=== PATIENT | female | born 2000 | race Caucasian/White ===

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

== ENCOUNTER 2020-04-11 11:27 | Outpatient (CLI) | payer BC, SELFPAY ==
--- NOTE | ~2020-04-11 | XR_ITS ---
EXAMINATION: XR foot RT standing 2V, XR foot RT min 3V EXAM DATE: 04/11/2020 11:59 INDICATION: M79.671 - Pain in right foot . TECHNIQUE: Right foot dorsoplantar, lateral and oblique projections obtained and reviewed. Addition al standing frontal and lateral projections right foot. There are no prior studies for comparison. FINDINGS: Right metatarsal bones unremarkable. There are no bony erosions identified. There is pes planus. There are no acute fractures or dislocations identified. There is no subcutaneous gas. The soft tissue is unremarkable. There are no radiopaque foreign bodies. IMPRESSION: Right-sided pes planus. Reviewed, dictated and finalized at location B. ODITY SPECIALIST IMPRESSION: Right-sided pes planus. IMPRESSION: Right-sided pes planus.
--- NOTE | ~2020-04-11 | XR_ITS ---
EXAMINATION: XR foot LT standing 2V, XR foot LT min 3V EXAM DATE: 04/11/2020 11:59 INDICATION: M79.671 - Pain in right foot, left foot pain, no injury. TECHNIQUE: Left foot dorsoplantar, lateral and oblique projections obtained and reviewed. Additional left foot frontal and lateral projections obtained standing. There are no prior studies for comparis on. FINDINGS: Left metatarsal bones unremarkable. There is pes planus. There are no acute fractures or dislocations identified. There is no subcutaneous gas. The soft tissue is unremarkable. There ar e no radiopaque foreign bodies. There are no bony erosions identified. IMPRESSION: Left-sided pes planus. Reviewed, dictated and finalized at location B. URE BUILDER IMPRESSION: Left-sided pes planus. IMPRESSION: Left-sided pes planus.
== END 2020-04-11 11:28 | disposition home or self-care (01) ==
PROVIDERS: PCP Family Medicine; Visit Provider Nurse Practitioner Family
DX: M21.072 Valgus deformity, not elsewhere classified, left ankle (principal); M21.071 Valgus deformity, not elsewhere classified, right ankle
CPT/HCPCS: 73620; 73630

== ENCOUNTER 2021-01-13 03:06 | Day surgery (SDC) | payer BC, SELFPAY ==
[2021-01-09 09:28] VITALS: BMI 32.9
--- NOTE | 2021-01-12 14:05 | WPDANESEPPF ---
Anes - Initial Pre Proc Eval Procedure: Operation Date: 01/13/21 09:30 Proposed Procedures p Talotarsal Stabilization Left Foot, Partha Anterior Calcaneal Osteotomy Left Foot, Cotton Osteotomy Left Foot Medial Cuneiform - Barry Medellin JR, MD Date/Time: 01/12/21 14:05 Surgeon: Barry Medellin JR, MD Pre Op Diagnosis: talotarsal instability left foot Patient Data Age: 20 Gender: F Height: 1.57 m Weight: 81.65 kg Allergies Allergy/AdvReac Type Severity Reaction Status Date / Time acetaminophen [From Percocet] AdvReac Intermediate Numbness Verified 01/09/21 09:24 oxycodone [From Percocet] AdvReac Intermediate Numbness Verified 01/09/21 09:24 Penicillins AdvReac Intermediate body went Verified 01/09/21 09:24 numb. Home Medications Medication Instructions Recorded Confirmed Type drospirenone (contraceptive) 4 mg 4 mg PO HS 04/11/20 01/09/21 History (28) tablet sertraline 100 mg tablet 100 mg PO HS 04/11/20 01/09/21 History trazodone 50 mg tablet 50 mg PO HS 04/11/20 01/09/21 History buspirone 5 mg PO BID 01/09/21 01/09/21 History cetirizine [Zyrtec] 10 mg PO HS 01/09/21 01/09/21 History ferrous sulfate [Iron (ferrous 325 mg PO HS 01/09/21 01/09/21 History sulfate)] folic acid 0.8 mg PO HS 01/09/21 01/09/21 History omeprazole 40 mg PO HS 01/09/21 01/09/21 History potassium 99 mg PO HS 01/09/21 01/09/21 History topiramate 50 mg PO HS 01/09/21 01/09/21 History Patient hx anesthesia problems: none Family hx anesthesia problems: none Results Review: All pre-operative results and documents have been reviewed as part of the pre-operative evaluation. [facility] Past Medical History Medical History (Updated 01/12/21 @ 14:05 by Nael Gold MD) Acute onset aura migraine Anxiety BMI 30.0-30.9,adult BMI 31.0-31.9,adult Depression Rib pain Rib pain on left side Family History Family History Father Hypertension Other Chronic migraine Amnesia Epilepsy Sibling Depression Anxiety Mother Epilepsy Memory deficit Sibling Asthma Social History Social History Smoking status: Current every day smoker Tobacco type: e-cigarettes/vaping Second hand tobacco smoke exposure: No Alcohol intake: never Alcohol use details: occaisionally Substance use: never Substance use type: does not use Living arrangements: with family Additional living arrangements comments: Lives with fatherl 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 Gender identity (if verbalized by the patient): Female Spiritual care concerns: No Anes - Eval Final PreProcedure Day of Procedure 01/12/21 14:05 Patient weight: obese Heart: regular rate and rhythm Lungs: clear to auscultation and normal air movement Airway: Mallampati scale class II Neurological: alert and oriented Last oral intake: >/= 8 hours ASA classification: II Emergent: no Anesthetic plan: proceed Anesthesia type and monitoring: general LMA Results Review: All pre-operative results and documents have been reviewed as part of the pre-operative evaluation. Informed Consent: The patient's anesthetic plan and its attendant risks and benefits were discussed with the patient/family/POA. Questions were solicited and answers provided to the satisfaction of the patient/family/POA.
--- NOTE | 2021-01-12 14:06 | WPDANESPNB ---
Anes - Peripheral Nerve Block Date/Time: 01/12/21 14:06 I have discussed with the patient/family/POA the placement of a peripheral nerve block for post-operative pain management, including associated risks, benefits, complications, and side effects. Alternative methods of post-operative analgesia were detailed. Questions were solicited and answers provided to the satisfaction of the patient/family/POA. Time-Out: A pre-procedural Time-Out was completed immediately before starting the procedure and confirmed: Patient Identification, Site, Procedure, Patient Position and the Availability of Requisite Equipment. Clinical Indications: Acute post-operative pain management requested by the operative surgeon. Nerve Block Insertion Note Anes-nerve block: posterior fossa sciatic (20cc) left and adductor canal (10cc) left Patient position: supine Skin prep: chlorhexidine Needle: 22 gauge, stimulating, insulated echogenic needle. Needle length: 80 mm Technique: ultrasound (in plane) Injectate: bupivacaine 0.5% with epi 5 mcg/ml (20cc) Observations: tolerated well Complications: none Procedure start time:: 905 Procedure end time:: 0
--- NOTE | ~2021-01-13 | XR_ITS ---
EXAMINATION: XR surgery orthopedic DATE: 01/13/2021 11:22 INDICATION: Left foot talotarsal instability. TECHNIQUE: 2 intraoperative fluoroscopic views of left foot were obtained. I was not present. Fluoros copy exposure time was 35 seconds. COMPARISON: Left foot radiographs 04/11/2020 FINDINGS: There is a screw in sinus tarsi. There is an osteotomy of calcaneus with implant and plate and screws. There is an osteotomy of medial cuneiform with implant. IMPRESSION: 1. Surgical changes of calcaneus, sinus tarsi, and medial cuneiform. Reviewed, dictated and finalized at location A.
--- NOTE | 2021-01-13 07:09 | WPDHPUPDATE1 ---
History and Physical Update Update Date/Time: 01/13/21 07:09 History and Physical has been reviewed, including an updated exam of the patient. There are NO changes in the patient's condition. Risks, benefits, and alternatives have been discussed and questions answered. Patient agrees to proceed with procedure.
[2021-01-13 07:50] VITALS: BP 137/69; PULSE 72; RESP 16; TEMP 36.9; O2SAT 100; BMI 33.3
[2021-01-13] MEDS: LACTATED RINGERS 1,000 ML 30 ML IV CONT ×2 (08:15→11:37)
[2021-01-13] MEDS: ceFAZolin 2 GM/D5W 50 ML 2 GM/50 ML BAG IVPB (09:19)
[2021-01-13 11:42] VITALS: BP 135/68; PULSE 110; RESP 18; TEMP 37.2; O2SAT 100
--- NOTE | 2021-01-13 11:43 | P.OPB_ITS ---
Procedure Note - Brief Procedure Note - Brief Date of procedure: 01/13/21 Pre-op diagnosis: talotarsal instability left foot 1. Pes plano valgus deformity left foot 2. Talotarsal instability let foot Procedure performed: 1. Chavis anterior calcaneal osteotomy left foot 2. Mick medial cuneiform osteotomy left foot 3. Talotarsal stabilization left foot Implants: 1. 8mm Chavis [employer] biofoam wedge with a Ortholoc two hole plate 2. 5.5mm Mick [employer] biofoam wedge 3. Size 5 Hyprocure subtalar implant Anesthesia: GLMA and regional Surgeon: Barry Medellin JR, MD Estimated blood loss (mL): 5 Drains: No Packing: No Pathology: none sent Complications: No immediate complications Condition: stable Disposition: same day
[2021-01-13 11:57] VITALS: BP 125/61; PULSE 102; RESP 17; O2SAT 100
--- NOTE | 2021-01-13 11:59 | SUR.PHASEI ---
1150 - pillow under left lower leg for elevation. Ice pack behind left knee.
--- NOTE | 2021-01-13 12:08 | SUR.PHASEI ---
1208 - pt denies having any pain when asked.
[2021-01-13 12:16] VITALS: BP 108/65; PULSE 93; RESP 16
[2021-01-13 12:45] VITALS: BP 108/65; PULSE 93; RESP 16
--- NOTE | 2021-01-13 16:58 | W.PM.PROC2 ---
Procedure Note - Detailed Date of Procedure 01/13/21 Pre-op Diagnosis 1. Pes plano valgus deformity left foot 2.Talotarsal instability left foot Post-op Diagnosis other Procedure Performed 1. Chavis anterior calcaneal osteotomy left foot 2. Cotton Medial cuneiform osteotomy left foot 3. Talotarsal stabilization left foot Surgeon Barry Medellin JR, DPM Anesthesia general and regional (Popliteal fossa block) Description of Procedure PROCEDURE IN DETAIL: Under mild sedation, the patient was brought into the operating room and placed on the operating table in the supine position. A pneumatic thigh tourniquet was placed about the patient's thigh. Following general anesthesia and a previous popliteal fossa block, the foot and ankle was then scrubbed, prepped, and draped in the usual aseptic manner. An Esmarch bandage was then used to exsanguinate the patient's foot and ankle and the pneumatic thigh tourniquet was then inflated to 300 mmHg. Attention was directed to the lateral aspect of the hindfoot. An incision was made starting just distal to the lateral malleolus and extending towards the base of the calcaneal cuboid joint. The extensor digitorum brevis muscle was detached partially from its origin to expose the calcaneal cuboid joint and distal lateral aspect of the anterior calcaneus. The peroneal tendons were carefully retracted inferiorly. The periosteal tissue was dissected approximately 1.5cm proximal to the calcaneal cuboid joint. At this point a sagittal saw blade was used to make an osteotomy parallel with the calcaneal joint however 1.5cm proximal to the joint, the medial cortical hinge was preserved. Two Tyesha pins were placed proximal and distal to the osteotomy site and the osteotomy was opened until the talar head was fully covered by the navicular this also helped slightly plantarflex the first ray. An 8mm Biofoam wedge from [employer] was tamped into the osteotomy and fixated with a [employer] Ortholoc 2 hole plate. The distractor was removed and transverse plane deformity of the patients flat foot well reduced. Attention was directed to the dorsal central aspect of the medial cuneiform which was identified with fluoroscopy. A 3cm incision was made proximal and distal but medial to the extensor hallucis longus tenon. The periosteoum was dissected medial and lateral exposing the dorsal central medial cuneiform. Again a sagittal saw blade was used to make a perpendicular osteotomy 1.5cm proximal to the 1st metatarsal cuneiform joint. The plantar cortical hinge was preserved. Two Tyesha pins were placed proximal and distal to the osteotomy site and the osteotomy was opened until the 1st ray was plantarflexed and forefoot reduced to neutral. A 5.5 mm Biofoam wedge from [employer] was tamped tightly into the osteotomy. The distractor was removed and sagittal plane deformity of the patients flat foot well reduced. Next the dorsal medial periosteal and capsular tissues were reapproximated and coapted with 3-0 Vicryl. The subcutaneous structures were reapproximated and coapted with 4-0 Vicryl and the skin was reapproximated with 4-0 Monocryl. Next, lateral closure began in a layered fashion, the Extensor digitorum brevis muscle was repositioned to its origin with 2.0 Vicryl. Next, the subcutaneous structures were reapproximated and coapted utilizing 4-0 Vicryl in simple interrupted suture technique. Finally, the skin was reapproximated and coapted utilizing a 4-0 Monocryl in a running subcuticular suture fashion technique. Attention was then directed to the lateral aspect of the sinus tarsi of the affected foot where a 2 cm incision was made along the lateral sinus tarsi canal. The incision was continued deep down through the subcutaneous tissues using sharp and blunt dissection. All bleeders ligated and cauterized as necessary. At this point, the talocalcaneal interosseous ligament was transected utilizing blunt t
== END 2021-01-13 13:04 | disposition home or self-care (01) ==
PROVIDERS: Visit Provider Podiatrist Foot & Ankle Surgery
PROC: (CPT 28750; principal; 2021-01-13 09:30)
DX: M21.072 Valgus deformity, not elsewhere classified, left ankle (principal); M25.375 Other instability, left foot; G89.18 Other acute postprocedural pain; F41.8 Other specified anxiety disorders; F17.290 Nicotine dependence, other tobacco product, uncomplicated; E66.9 Obesity, unspecified; Z68.33 Body mass index [BMI] 33.0-33.9, adult
CPT/HCPCS: 28300; 64445; 64447; 28899; 23800; A9270; C1713; J0690; J1100; J2250; J2370; J2405; J2704; J3010; J7120

== ENCOUNTER 2023-02-01 02:46 | Day surgery (SDC) | payer BC, SELFPAY ==
[2023-01-22 11:52] VITALS: BMI 31.1
--- NOTE | 2023-01-22 11:57 | PC.NURSE ---
Report to the Outpatient Waiting Room, entrance under the green pavilion located off [facility], at time _0700_ on date _[id number]_. Planned Procedure Time: _0900_. Time changes happen often and if your time is changed the preop area will call you the afternoon before. - You and your visitor will be asked to self-screen and do not enter if you have any COVID symptoms. - A mask is optional within the hospital at this time. Patients may have clear liquids (water, carbonated beverages, clear teas, apple juice) until 3 hours prior to surgery with a maximum of 20 ounces. - No food from midnight until time of surgery Take the following medications with a SIP of water the morning of surgery: ___Buspirone DO NOT STOP ANY OF YOUR OTHER PRESCRIPTION MEDICATIONS PRIOR TO SURGERY ?EXCEPT THE FOLLOWING Medications to discontinue per physician __None Date to take last dose Please no make-up, nail nauruan, hairspray, perfume, deodorant, or body powder the day of surgery. No jewelry (including any body piercings) or valuables the day of surgery, leave them at home. Please take a shower or bath the night before, or the morning of, surgery with an antibacterial soap. Wear comfortable, loose fitting clothing. - Jewelry must be removed prior to entering the operating room. Rings and piercings that are not removed may be cut off. - The hospital will not accept responsibility for valuables. - Please leave all valuables, including medications, at home the day of surgery. If you are going home after surgery, a licensed road driver must drive you home. - NO public transportation without another adult if you receive anesthesia. - We recommend that an adult stay with you for 24 hours following discharge. - We also recommend that you do not drive, make important decision, drink alcoholic beverages, or take any drugs that were not prescribed by your health care provider for at least 24 hours after your discharge time. Follow any additional instructions given to you from your surgeon. If you or anyone in your household have experienced Covid symptoms in the past week, please notify your surgeon or the nurse liaison at the phone number below for possible testing. Telephone instructions given to _Patient__and asked if any additional questions and then verbalized understanding. Patient advised to call surgeon office or pre surgery nurse liaison [phone] if any additional questions.
--- NOTE | ~2023-02-01 | XR_ITS ---
EXAMINATION: XR surgery orthopedic DATE: 02/01/2023 10:01 INDICATION: Painful hardware in left foot. TECHNIQUE: A single intraoperative fluoroscopic lateral view of the left foot was obtained. I was not present. Fluoroscopy exposure time was 3 seconds. COMPARISON: Fluoroscopy 01/13/2021. FINDINGS: The sinus tarsi implant is been removed. There is an osteotomy of calcaneus with internal f ixation. An implant overlies the cuneiforms. IMPRESSION: 1. Sinus tarsi implant removal. Reviewed, dictated and finalized at location A.
--- NOTE | 2023-02-01 06:50 | P.PNAN_ITS ---
Anes - Initial Pre Proc Eval Procedure: Operation Date: 02/01/23 09:00 Proposed Procedures p Removal of Deep Orthopedic Hardware Left Foot - Barry Medellin JR, MD Date/Time: 02/01/23 06:50 Surgeon: Barry Medellin JR, MD Pre Op Diagnosis: painful deep orth. hardware left foot Patient Data Age: 22 Gender: F Height: 1.57 m Weight: 77.3 kg Allergies Allergy/AdvReac Type Severity Reaction Status Date / Time oxycodone [From Percocet] AdvReac Intermediate Numbness Verified 01/22/23 11:50 Penicillins AdvReac Intermediate body went Verified 01/22/23 11:50 numb. Home Medications Medication Instructions Recorded Confirmed Type sertraline 100 mg tablet (Zoloft) 100 mg PO HS 04/11/20 01/22/23 History trazodone 50 mg tablet 50 mg PO HS 04/11/20 01/22/23 History buspirone 5 mg tablet 5 mg PO BID 01/09/21 01/22/23 History cetirizine 10 mg tablet (Zyrtec) 10 mg PO HS 01/09/21 01/22/23 History omeprazole 40 mg capsule,delayed 40 mg PO HS 01/09/21 01/22/23 History release topiramate 50 mg tablet 50 mg PO HS 01/09/21 01/22/23 History Patient hx anesthesia problems: none Family hx anesthesia problems: none Results Review: All pre-operative results and documents have been reviewed as part of the pre- operative evaluation. [facility] Past Medical History Medical History Acute onset aura migraine Anxiety BMI 30.0-30.9,adult BMI 31.0-31.9,adult Depression Rib pain Rib pain on left side Surgical History Surgical History (Updated 02/01/23 @ 06:51 by Ventura Castro MD) H/O resection of rib History of foot surgery Family History Family History Father Hypertension Other Chronic migraine Amnesia Epilepsy Sibling Depression Anxiety Mother Epilepsy Memory deficit Sibling Asthma Social History Social History Smoking status: Current every day smoker Tobacco type: e-cigarettes/vaping Second hand tobacco smoke exposure: No Alcohol intake: current Drinks per week: 2 Alcohol use details: occaisionally Substance use: never Substance use type: does not use Living arrangements: with family Additional living arrangements comments: Lives with fatherl Occupation/Education: unemployed 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 Gender identity (if verbalized by the patient): Female Spiritual care concerns: No Anes - Eval Final PreProcedure Day of Procedure 02/01/23 06:50 Patient weight: obese Heart: regular rate and rhythm Lungs: clear to auscultation Airway: Mallampati scale class II Neurological: alert and oriented Last oral intake: >/= 8 hours ASA classification: II Emergent: no Anesthetic plan: proceed Anesthesia type and monitoring: general GIVS and standard monitoring Results Review: All pre-operative results and documents have been reviewed as part of the pre- operative evaluation. Informed Consent: The patient's anesthetic plan and its attendant risks and benefits were discussed with the patient/family/POA. Questions were solicited and answers provided to the satisfaction of the patient/family/POA.
[2023-02-01 07:05] VITALS: BP 113/59; PULSE 66; RESP 14; TEMP 36.3; O2SAT 100; BMI 31.4
--- NOTE | 2023-02-01 07:05 | WPDHPUPDATE1 ---
History and Physical Update Update Date/Time: 02/01/23 07:05 History and Physical has been reviewed, including an updated exam of the patient. There are NO changes in the patient's condition. Risks, benefits, and alternatives have been discussed and questions answered. Patient agrees to proceed with procedure.
[2023-02-01] MEDS: LACTATED RINGERS 1,000 ML 30 ML IV CONT (07:20)
[2023-02-01] MEDS: ceFAZolin 2 GM/D5W 50 ML 2 GM/50 ML BAG IVPB (09:24)
[2023-02-01] MEDS: LIDOCAINE HCL 2% PF INJ 5 ML VIAL 20 ML INFILTRATE (09:50)
[2023-02-01 10:05] VITALS: BP 107/63; PULSE 76; O2SAT 98
[2023-02-01 10:35] VITALS: BP 103/75; PULSE 90
[2023-02-01 11:05] VITALS: BP 94/39; PULSE 68
--- NOTE | 2023-02-01 11:19 | W.PM.PROC2 ---
Procedure Note - Detailed Date of Procedure 02/01/23 Pre-op Diagnosis Painful deep orthopedic hardware left foot Post-op Diagnosis Same Procedure Performed Removal of deep orthopedic hardware left foot Surgeon Barry Medellin JR, DPM Anesthesia MAC and Local Indications Painful hardware left foot Description of Procedure Under mild sedation, the patient was brought to the operating room, placed on the operating table in the supine position. A pneumatic calf tourniquet was placed about the patient's left calf . Following MAC anesthesia I performed a local anesthetic nerve block with 10cc of 2% Lidocaine plain and 0.5% Marcaine plain along the lateral distal leg and ankle. The left foot and distal leg was then scrubbed, prepped, and draped in the usual aseptic manner. An Esmarch bandage was then used to examine the patient's left foot and pneumatic calf tourniquet was then inflated. Surgery began in the following manner. Attention was directed to the lateral aspect of the sinus tarsi where I excised the old incision. I dissected deep down to the deep contents of the sinus tarsi where the Sinus Tarsi implant was visualized. It was noted to be scarred within the constraints of the sinus tarsi. I used a Chuck clamp to remove the Hyprocure implant in toto. It was placed in a specimen cup and will be flashed and will be given to the patient. I flushed the sinus tarsi with copious amounts of sterile saline. Fluoroscopy was used to make document implant removal. After removal the AP view showed excellent head coverage the lateral view demonstrates a rectus cyma line maintained. I closed the deep contents of the sinus tarsi with 4-0 Vicryl . Next, the skin was reapproximated and coapted with 4-0 Monocryl in running subcuticular suture fashion technique. Upon completion of the procedure, the incision was dressed with Adaptic, Kerlix Coban. The pneumatic calf tourniquet was then deflated and a prompt hyperemic response noted to all digits of the left foot. A CAM Walker boot was then applied. The patient did very well with the procedure and the anesthesia. He was transferred to the recovery room with vital signs stable and vascular status intact to all toes of the left foot. Following a period of postoperative monitoring, the patient will be discharged home on the following written and oral postoperative instructions: 1. Keep the dressing clean, dry, and intact. Use a cast protector bag with showers. 2. The patient to be protected weightbearing with a knee scooter. 3. The patient should ice and elevate the affected foot when at rest. 4. The patient to contact Dr. Medellin for all postop care and if any problems arise. 5. Prescriptions were written for Percocet 5/325 dispensed 40 to be taken 1 p.o. q.4 to 6 hours as needed for severe pain. Estimated Blood Loss 1 Drains No Packing No Pathology None sent Complications No immediate complications Condition Stable
[2023-02-01 11:35] VITALS: BP 120/68; PULSE 63
--- NOTE | 2023-02-01 11:45 | SUR.PHASEII ---
1030 Dr Medellin notified of pt history of a side effect to Percocet. Dr. Medellin states he gave her a prescription for Seglentis instead of Percocet. Pt and father updated.
== END 2023-02-01 11:43 | disposition home or self-care (01) ==
PROVIDERS: Visit Provider Podiatrist Foot & Ankle Surgery
PROC: (CPT 20680; principal; 2023-02-01 09:00)
DX: T84.84XA Pain due to internal orthopedic prosthetic devices, implants and grafts, initial encounter (principal); M79.672 Pain in left foot; Y83.8 Other surgical procedures as the cause of abnormal reaction of the patient, or of later complication, without mention of misadventure at the time of the procedure; F41.9 Anxiety disorder, unspecified; F32.A Depression, unspecified; F17.290 Nicotine dependence, other tobacco product, uncomplicated; E66.9 Obesity, unspecified; Z68.31 Body mass index [BMI] 31.0-31.9, adult
CPT/HCPCS: 20680; 99199; J0690; J1100; J2250; J2405; J2704; J3010; J7120